=== PATIENT | female | born 2000 | race Caucasian/White ===

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

== ENCOUNTER → 2021-10-02 22:34 | Observation (INO) | END | disposition home or self-care (01) | LOC: 1NENULAB | PROVIDERS: ADMIT Advanced Practice Midwife; ATTEND Advanced Practice Midwife ==

== ENCOUNTER → 2021-11-18 18:12 | Observation (INO) ==
[2021-11-18 17:02] LABS: Bilirubin,Urine Negative (Negative); Blood,Urine Negative (Negative); Clarity,Urine Clear (Clear); Color,Urine Light-Yellow (Yellow); Glucose,Urine (UA) Normal (Normal); Ketones,Urine Negative (Negative); Leukocyte Esterase,Urine Negative (Negative); Nitrite,Urine Negative (Negative); Protein,Urine Negative (Neg-Trace); Specific Gravity,Urine 1.009 (1.010-1.025); Urobilinogen,Urine Normal (Normal)
[2021-11-18 17:03] LABS: Basophils % 0.2 %; Eosinophils # 0.1 K/mcL (0.0-0.6); Eosinophils % 0.5 %; Hematocrit 37.2 % (35.3-44.9); Hemoglobin 12.6 g/dL (11.5-15.4); Immature Granulocytes % 0.4 % (0-4); Lymphocytes # 1.7 K/mcL (0.6-4.6); Lymphocytes % 11.7 %; Mean Corpuscular HGB Conc 33.9 g/dL (31.6-35.5); Mean Corpuscular Hemoglobin 30.9 pg (28.0-33.3); Mean Corpuscular Volume 91.2 fL (83.0-100.0); Mean Platelet Volume 10.6 fL (9.4-12.4); Monocytes # 0.7 K/mcL (0.0-1.3); Monocytes % 5.2 %; Neutrophils # 11.8 K/mcL (1.6-8.9); Platelet Count 340 K/mcL (140-400); Red Blood Count 4.08 M/mcL (3.82-4.97); Red Cell Distribution Width 12.9 % (11.5-14.5); White Blood Count 14.3 K/mcL (4.3-11.1)
[2021-11-18 17:16] LABS: Protein/Creatinine Ratio,Urine 0.19 mg/mg (0.00-0.20)
[2021-11-18 17:22] LABS: Alanine Aminotransferase 11 Units/L (7-52); Aspartate Amino Transferase 19 Units/L (13-39); BUN/Creatinine Ratio 18 (6-26); Blood Urea Nitrogen 10 mg/dL (6-20); Lactate Dehydrogenase 149 Units/L (140-271); Uric Acid 5.2 mg/dL (2.3-7.6); eGFR For African Americans > 60 (> 60); eGFR For Non-African Americans > 60 (> 60)
== END | disposition home or self-care (01) ==
LOC: 1NENULAB
PROVIDERS: ADMIT Advanced Practice Midwife; ATTEND Advanced Practice Midwife

== ENCOUNTER 2021-11-27 11:58 | Inpatient (IN) ==
[2021-11-27] MEDS ORDERED: Naloxone 0.4 MG/ML INJ IVP PRN (12:48)
[2021-11-27] MEDS ORDERED: Metoclopramide 10 MG/2 ML VIAL IVP PRN (12:48)
[2021-11-27] MEDS ORDERED: Ondansetron 4 MG/2 ML VIAL IVP PRN (12:48)
[2021-11-27] MEDS ORDERED: Azithromycin 500 MG in 0.9 % Sodium Chloride 250 ML IVPB PRN (12:48)
[2021-11-27] MEDS ORDERED: *HR* Nalbuphine 10 MG/ML AMPUL IV PRN (12:48)
[2021-11-27] MEDS ORDERED: Famotidine 20 MG/2 ML VIAL IVP PRN (12:48)
[2021-11-27] MEDS ORDERED: *HR* FentaNYL (PF) 100 MCG/2 ML VIAL EP ONE (14:03)
[2021-11-27] MEDS ORDERED: EPHEDrine 50 MG/ML VIAL IVP PRN (14:03)
[2021-11-27] MEDS ORDERED: Ropivacaine/PF 0.2% 20 ML VIAL EP ONE (14:03)
[2021-11-27 14:11] LABS: Amphetamine Screen,Urine Negative ng/mL (Cutoff=1000); Barbiturate Screen,Urine Negative ng/mL (Cutoff=200); Basophils % 0.1 %; Benzodiazepines Screen,Urine Negative ng/mL (Cutoff=200); Cannabinoid Screen,Urine Negative ng/mL (Cutoff = 50); Cocaine Screen,Urine Negative ng/mL (Cutoff= 300); Eosinophils # 0.2 K/mcL (0.0-0.6); Hematocrit 35.4 % (35.3-44.9); Hemoglobin 11.3 g/dL (11.5-15.4); Immature Granulocytes % 0.6 % (0-4); Lymphocytes # 1.4 K/mcL (0.6-4.6); Lymphocytes % 8.7 %; Mean Corpuscular HGB Conc 31.9 g/dL (31.6-35.5); Mean Corpuscular Volume 93.9 fL (83.0-100.0); Mean Platelet Volume 10.8 fL (9.4-12.4); Monocytes # 0.9 K/mcL (0.0-1.3); Opiate Screen,Urine Negative ng/mL (Cutoff=300); Phencyclidine Screen,Urine Negative ng/mL (Cutoff=25); Platelet Count 313 K/mcL (140-400); Red Blood Count 3.77 M/mcL (3.82-4.97); Segmented Neutrophils % 83.6 %; White Blood Count 15.6 K/mcL (4.3-11.1)
[2021-11-27] MEDS ORDERED: miSOPROStoL 25 MCG TABLET PO SCH (14:15)
[2021-11-27] MEDS ORDERED: Epidural Premix (fent/bupiv) 110 ML EP SCH ×2 (14:15→14:45)
[2021-11-27 14:17] LABS: Glucose 101 mg/dL (70-105)
[2021-11-27 14:36] LABS: Influenza A PCR Negative (Negative); Influenza B PCR Negative (Negative); Resp. Syncytial Virus PCR Negative (Negative)
[2021-11-27 14:37] LABS: Alanine Aminotransferase 9 Units/L (7-52); Aspartate Amino Transferase 15 Units/L (13-39); BUN/Creatinine Ratio 16 (6-26); Blood Urea Nitrogen 9 mg/dL (6-20); Creatinine,Urine 235 mg/dL; Lactate Dehydrogenase 168 Units/L (140-271); Protein/Creatinine Ratio,Urine 0.28 mg/mg (0.00-0.20); SARS-CoV-2 by PCR (In House) Negative (Negative); Uric Acid 4.6 mg/dL (2.3-7.6); eGFR For African Americans > 60 (> 60); eGFR For Non-African Americans > 60 (> 60)
[2021-11-28] MEDS ORDERED: *HR* FentaNYL (PF) 100 MCG/2 ML VIAL ONE (07:24)
[2021-11-28] MEDS ORDERED: EPHEDrine 50 MG/ML VIAL ONE (07:24)
[2021-11-28] MEDS ORDERED: *HR* Morphine Sulfate/PF 10 MG/10 ML AMPUL ONE (07:24)
[2021-11-28] MEDS ORDERED: EPINEPHrine 1 MG/ML VIAL ONE (07:25)
[2021-11-28] MEDS ORDERED: *HR* Oxytocin 10 UNIT/ML VIAL ONE (07:25)
[2021-11-28] MEDS ORDERED: Acetaminophen IV 1,000 MG/100 ML BAG IVPB ONE (07:25)
[2021-11-28] MEDS ORDERED: *HR* Phenylephrine 10 MG/ML VIAL ONE (07:25)
[2021-11-28] MEDS ORDERED: Ondansetron 4 MG/2 ML VIAL ONE (07:25)
[2021-11-28] MEDS ORDERED: Ketorolac 30 MG/ML VIAL ONE (07:25)
[2021-11-28] MEDS ORDERED: *HR* Midazolam HCl 2 MG/2 ML VIAL ONE (07:26)
[2021-11-28] MEDS ORDERED: Oxytocin 20 units/ LR 1000 mL 20 UNIT/1,000 ML BAG IVC ONE (07:29)
[2021-11-28] MEDS ORDERED: Ringers Solution, Lactated 1,000 ML IVC ONE (07:29)
[2021-11-28] MEDS ORDERED: CeFAZolin Syr 3,000MG/30 ML 3,000 MG/30 ML SYRINGE IVPB ONE (07:29)
[2021-11-28] MEDS ORDERED: Ringers Solution, Lactated 1,000 ML IVC SCH ×2 (07:30→13:10)
[2021-11-28] MEDS ORDERED: Oxytocin 20 units/ LR 1000 mL 20 UNIT/1,000 ML BAG IVC SCH ×2 (07:30→13:10)
[2021-11-28] MEDS ORDERED: Ringers Solution, Lactated 1,000 ML ONE ×2 (07:38→09:30)
[2021-11-28] MEDS ORDERED: Lidocaine -MPF 1% 5 ML AMPUL ONE (08:50)
[2021-11-28 12:42] LABS: Basophils % 0.1 %; Eosinophils % 0.1 %; Hematocrit 37.3 % (35.3-44.9); Hemoglobin 12.4 g/dL (11.5-15.4); Immature Granulocytes % 0.6 % (0-4); Lymphocytes # 0.7 K/mcL (0.6-4.6); Lymphocytes % 3.1 %; Mean Corpuscular HGB Conc 33.2 g/dL (31.6-35.5); Mean Corpuscular Hemoglobin 30.5 pg (28.0-33.3); Mean Corpuscular Volume 91.6 fL (83.0-100.0); Mean Platelet Volume 10.7 fL (9.4-12.4); Monocytes # 0.5 K/mcL (0.0-1.3); Monocytes % 2.4 %; Neutrophils # 19.9 K/mcL (1.6-8.9); Platelet Count 378 K/mcL (140-400); Red Blood Count 4.07 M/mcL (3.82-4.97); Red Cell Distribution Width 13.2 % (11.5-14.5); Segmented Neutrophils % 93.7 %; White Blood Count 21.3 K/mcL (4.3-11.1)
[2021-11-28 12:54] LABS: Protein/Creatinine Ratio,Urine 0.45 mg/mg (0.00-0.20)
[2021-11-28 13:02] LABS: Alanine Aminotransferase 10 Units/L (7-52); Aspartate Amino Transferase 22 Units/L (13-39); BUN/Creatinine Ratio 16 (6-26); Blood Urea Nitrogen 11 mg/dL (6-20); Lactate Dehydrogenase 235 Units/L (140-271); Uric Acid 5.3 mg/dL (2.3-7.6); eGFR For African Americans > 60 (> 60); eGFR For Non-African Americans > 60 (> 60)
[2021-11-28] MEDS ORDERED: Naloxone 0.4 MG/ML INJ IVP PRN (13:10)
[2021-11-28] MEDS ORDERED: Metoclopramide 10 MG/2 ML VIAL IVP PRN (13:10)
[2021-11-28] MEDS ORDERED: Ondansetron 4 MG/2 ML VIAL IVP PRN (13:10)
[2021-11-28] MEDS ORDERED: Rho Immune Globulin 1,500 UNIT SYRINGE IM ONE (13:10)
[2021-11-28] MEDS ORDERED: Simethicone 80 MG TAB.CHEW PO PRN (13:10)
[2021-11-28] MEDS: *HR* Metformin 500 MG TABLET PO SCH (16:47)
[2021-11-28] MEDS: Acetaminophen 325 MG TABLET PO SCH ×2 (16:48→22:48)
[2021-11-28] MEDS: Ibuprofen 600 MG TABLET PO SCH ×2 (16:48→22:48)
[2021-11-28] MEDS: hydrOXYzine pamoate 25 MG CAPSULE PO PRN (16:48)
[2021-11-28] MEDS ORDERED: *HR* Nalbuphine 10 MG/ML AMPUL IV PRN (17:06)
[2021-11-28] MEDS ORDERED: Fluconazole 150 MG TABLET PO ONE (21:00)
[2021-11-28] MEDS: metroNIDAZOLE 500 MG TABLET PO SCH (21:19)
[2021-11-28] MEDS: cephALEXin 500 MG CAPSULE PO SCH (21:19)
[2021-11-28] MEDS: LOVEN SQ SCH (21:20)
[2021-11-29] MEDS: Ibuprofen 600 MG TABLET PO SCH ×2 (04:29→16:12)
[2021-11-29] MEDS: Acetaminophen 325 MG TABLET PO SCH ×2 (04:30→20:42)
[2021-11-29] MEDS: hydrOXYzine pamoate 25 MG CAPSULE PO PRN ×3 (04:30→20:42)
[2021-11-29 05:46] LABS: Basophils % 0.3 %; Eosinophils # 0.1 K/mcL (0.0-0.6); Eosinophils % 0.9 %; Hemoglobin 11.2 g/dL (11.5-15.4); Immature Granulocytes % 0.6 % (0-4); Lymphocytes % 15.2 %; Mean Corpuscular HGB Conc 32.9 g/dL (31.6-35.5); Mean Corpuscular Hemoglobin 30.5 pg (28.0-33.3); Mean Corpuscular Volume 92.6 fL (83.0-100.0); Mean Platelet Volume 10.3 fL (9.4-12.4); Monocytes # 0.8 K/mcL (0.0-1.3); Neutrophils # 10.4 K/mcL (1.6-8.9); Platelet Count 319 K/mcL (140-400); Red Blood Count 3.67 M/mcL (3.82-4.97); Red Cell Distribution Width 13.1 % (11.5-14.5); White Blood Count 13.5 K/mcL (4.3-11.1)
[2021-11-29] MEDS: *HR* Metformin 500 MG TABLET PO SCH ×2 (07:29→16:12)
[2021-11-29] MEDS: cephALEXin 500 MG CAPSULE PO SCH ×3 (08:57→20:43)
[2021-11-29] MEDS: metroNIDAZOLE 500 MG TABLET PO SCH ×3 (08:58→20:43)
[2021-11-29] MEDS: Loratadine 10 MG TABLET PO SCH (08:58)
[2021-11-29] MEDS: Prenatal Vit/FA 1 EACH TABLET PO SCH (08:59)
[2021-11-29] MEDS: LOVEN SQ SCH ×2 (09:00→20:39)
[2021-11-29] MEDS: *HR* OxyCODONE Immed Rel 5 MG TABLET PO PRN ×3 (09:20→20:43)
[2021-11-30] MEDS: *HR* OxyCODONE Immed Rel 5 MG TABLET PO PRN ×3 (01:44→15:52)
[2021-11-30] MEDS: Ibuprofen 600 MG TABLET PO SCH ×3 (01:46→23:07)
[2021-11-30] MEDS: Prenatal Vit/FA 1 EACH TABLET PO SCH (08:19)
[2021-11-30] MEDS: metroNIDAZOLE 500 MG TABLET PO SCH ×2 (08:19→15:52)
[2021-11-30] MEDS: cephALEXin 500 MG CAPSULE PO SCH ×2 (08:19→15:52)
[2021-11-30] MEDS: Acetaminophen 325 MG TABLET PO SCH ×2 (08:20→23:07)
[2021-11-30] MEDS: Loratadine 10 MG TABLET PO SCH (08:20)
[2021-11-30] MEDS: LOVEN SQ SCH ×2 (08:20→23:07)
[2021-11-30] MEDS: *HR* Metformin 500 MG TABLET PO SCH (08:20)
[2021-11-30 08:35] VITALS: O2SAT 98
[2021-11-30] MEDS: hydrOXYzine pamoate 25 MG CAPSULE PO PRN (23:07)
[2021-12-01] MEDS: Acetaminophen 325 MG TABLET PO SCH (06:50)
[2021-12-01] MEDS: Ibuprofen 600 MG TABLET PO SCH (06:50)
[2021-12-01 07:17] VITALS: BP 124/86; PULSE 108; TEMP 97.6
[2021-12-01] MEDS: Prenatal Vit/FA 1 EACH TABLET PO SCH (09:57)
[2021-12-01] MEDS: Loratadine 10 MG TABLET PO SCH (09:57)
[2021-12-01] MEDS: LOVEN SQ SCH (09:59)
[2021-12-01] MEDS ORDERED: lamoTRIgine 25 MG TABLET PO SCH (11:30)
[2021-12-01] MEDS: *HR* Metformin 500 MG TABLET PO SCH (13:57)
== END 2021-12-01 16:08 | disposition home or self-care (01) | DRG 540 ==
LOC: 1NENULAB 11:58 → 1NENUOBS 19:27
PROVIDERS: ADMIT Registered Nurse; ATTEND Registered Nurse

== ENCOUNTER 2021-12-09 10:10 | Inpatient (IN) ==
[2021-12-09 11:24] LABS: Amphetamine Screen,Urine Negative ng/mL (Cutoff=1000); Barbiturate Screen,Urine Negative ng/mL (Cutoff=200); Benzodiazepines Screen,Urine Negative ng/mL (Cutoff=200); Cannabinoid Screen,Urine Negative ng/mL (Cutoff = 50); Cocaine Screen,Urine Negative ng/mL (Cutoff= 300); Opiate Screen,Urine Negative ng/mL (Cutoff=300); Phencyclidine Screen,Urine Negative ng/mL (Cutoff=25)
[2021-12-09 11:25] LABS: Basophils % 0.4 %; Eosinophils # 0.3 K/mcL (0.0-0.6); Eosinophils % 3.8 %; Hematocrit 32.5 % (35.3-44.9); Hemoglobin 10.4 g/dL (11.5-15.4); Immature Granulocytes % 0.2 % (0-4); Lymphocytes # 0.8 K/mcL (0.6-4.6); Lymphocytes % 9.4 %; Mean Corpuscular Hemoglobin 30.3 pg (28.0-33.3); Mean Corpuscular Volume 94.8 fL (83.0-100.0); Mean Platelet Volume 9.4 fL (9.4-12.4); Monocytes # 0.8 K/mcL (0.0-1.3); Neutrophils # 6.6 K/mcL (1.6-8.9); Platelet Count 462 K/mcL (140-400); Red Blood Count 3.43 M/mcL (3.82-4.97); Red Cell Distribution Width 13.4 % (11.5-14.5); Segmented Neutrophils % 77.2 %; White Blood Count 8.5 K/mcL (4.3-11.1)
[2021-12-09 11:37] LABS: Bacteria,Urine Few per hpf (None-Few); Bilirubin,Urine Negative (Negative); Blood,Urine Large (Negative); Clarity,Urine Clear (Clear); Color,Urine Colorless (Yellow); Glucose,Urine (UA) Normal (Normal); Ketones,Urine Negative (Negative); Leukocyte Esterase,Urine Trace (Negative); Nitrite,Urine Negative (Negative); PH,Urine 6.5 pH Units (5.0-8.0); Protein,Urine Negative (Neg-Trace); RBC,Urine 0-3 per hpf (0-3); Specific Gravity,Urine 1.008 (1.010-1.025); Squamous Epithelial Cell,Urine Few per hpf (None-Few); Transitional Epi Cells,Urine Few per hpf (None-Few); Urobilinogen,Urine Normal (Normal)
[2021-12-09] MEDS ORDERED: Isovue-370 500 ML BOTTLE IVP ONE (11:42)
[2021-12-09 11:46] LABS: Acetaminophen < 10 mcg/mL (10-20); Alanine Aminotransferase 20 Units/L (7-52); Albumin 3.5 g/dL (3.5-5.7); Albumin/Globulin Ratio 1.2 (1.1-2.2); Alkaline Phosphatase 103 Units/L (34-104); Aspartate Amino Transferase 26 Units/L (13-39); BUN/Creatinine Ratio 14 (6-26); Bilirubin,Direct 0.1 mg/dL (0.0-0.2); Bilirubin,Indirect 0.2 mg/dL (0.0-1.0); Bilirubin,Total 0.3 mg/dL (0.3-1.0); Blood Urea Nitrogen 11 mg/dL (6-20); Calcium 8.5 mg/dL (8.6-10.3); Carbon Dioxide 25 mEq/L (23-29); Chloride 107 mEq/L (98-107); Chol/HDL Ratio 3.6 (0-4.9); Cholesterol 217 mg/dL (< 200); Ethanol < 10 mg/dL (Less than 10); Globulin 2.9 g/dL (2.4-3.5); Glucose 79 mg/dL (70-105); HDL Cholesterol 60 mg/dL (40-59); LDL Cholesterol,Calculated 125 mg/dL (< 100); Osmolality,Calculated 288 (280-300); Potassium 4.6 mEq/L (3.5-5.1); Salicylate < 2.5 mg/dL (15.0-30.0); Sodium 140 mEq/L (136-145); Total Protein 6.4 g/dL (6.4-8.9); Triglycerides 160 mg/dL (< 150); eGFR For African Americans > 60 (> 60); eGFR For Non-African Americans > 60 (> 60)
[2021-12-09 11:48] LABS: Estimated Average Glucose 114 mg/dl; Hemoglobin A1C 5.6 %
[2021-12-09] MEDS ORDERED: Ipratropium/Albuterol Neb 3 ML IH ONE (12:04)
[2021-12-09 12:06] LABS: Thyroid Stimulating Hormone 2.952 mcIU/mL (0.340-5.600)
[2021-12-09 12:30] LABS: Influenza A PCR Negative (Negative); Influenza B PCR Negative (Negative); Resp. Syncytial Virus PCR Negative (Negative); SARS-CoV-2 by PCR (In House) Negative (Negative)
[2021-12-09] MEDS ORDERED: cefTRIAXone 1,000 MG in 0.9 % Sodium Chloride Mini Bag 100 ML IVPB ONE (14:35)
[2021-12-09 15:42] LABS: Candida DNA Not Detected (Not Detect); Gardnerella DNA Not Detected (Not Detect); Trichomonas DNA Not Detected (Not Detect)
[2021-12-09] MEDS ORDERED: Ibuprofen 600 MG TABLET PO PRN (22:45)
[2021-12-09] MEDS ORDERED: *HR* HYDROcodone/Acet 5/325 mg TABLET PO PRN (22:45)
[2021-12-09] MEDS ORDERED: hydrOXYzine pamoate 25 MG CAPSULE PO PRN (22:45)
[2021-12-09] MEDS ORDERED: D5% in Water 1,000 ML IVC PRN (22:45)
[2021-12-09] MEDS ORDERED: *HR* Dextrose 50 % in Water (Syg) 50 ML SYRINGE IVP PRN (22:45)
[2021-12-09] MEDS ORDERED: Dextrose Gel 15 GM/37.5 ML TUBE PO PRN ×2 (22:45)
[2021-12-09] MEDS ORDERED: lamoTRIgine 25 MG TABLET PO SCH (22:45)
[2021-12-10] MEDS: Clindamycin 900 MG/50 ML 900 MG/50 ML IV.SOLN IVPB SCH ×3 (00:02→17:54)
[2021-12-10] MEDS: Acetaminophen 325 MG TABLET PO SCH ×4 (00:02→17:54)
[2021-12-10] MEDS ORDERED: *HR* LORazepam 2 MG/ML VIAL IVP PRN (01:14)
[2021-12-10] MEDS: cefTRIAXone 1,000 MG in 0.9 % Sodium Chloride 10 ML IVPB SCH ×2 (06:27→17:54)
[2021-12-10] MEDS: Insulin LISPRO 300 UNITS/3 ML VIAL SUBQ SCH ×3 (07:33→17:30)
[2021-12-10] MEDS: *HR* Metformin 500 MG TABLET PO SCH ×2 (08:38→17:54)
[2021-12-10] MEDS: Loratadine 10 MG TABLET PO SCH (08:38)
[2021-12-10] MEDS: *HR* Enoxaparin 60 MG/0.6 ML SYRINGE SQ SCH (17:54)
[2021-12-10] MEDS: cephALEXin 500 MG CAPSULE PO SCH (20:03)
[2021-12-10] MEDS ORDERED: lamoTRIgine 25 MG TABLET PO SCH (21:00)
[2021-12-11] MEDS: Acetaminophen 325 MG TABLET PO SCH ×3 (00:12→11:38)
[2021-12-11 02:16] LABS: Hematocrit 36.3 % (35.3-44.9); Hemoglobin 11.7 g/dL (11.5-15.4); Mean Corpuscular HGB Conc 32.2 g/dL (31.6-35.5); Mean Corpuscular Hemoglobin 30.8 pg (28.0-33.3); Mean Corpuscular Volume 95.5 fL (83.0-100.0); Mean Platelet Volume 9.4 fL (9.4-12.4); Platelet Count 523 K/mcL (140-400); Red Cell Distribution Width 13.1 % (11.5-14.5); White Blood Count 7.8 K/mcL (4.3-11.1)
[2021-12-11 03:00] LABS: Eosinophils # 0.3 K/mcL (0.0-0.6); Lymphocytes # 2.3 K/mcL (0.6-4.6); Monocytes # 0.2 K/mcL (0.0-1.3)
[2021-12-11 03:01] LABS: Platelet Estimate Increased (Normal)
[2021-12-11] MEDS: *HR* Enoxaparin 60 MG/0.6 ML SYRINGE SQ SCH (06:54)
[2021-12-11 07:36] VITALS: O2SAT 98
[2021-12-11] MEDS: cephALEXin 500 MG CAPSULE PO SCH (08:43)
[2021-12-11] MEDS: *HR* Metformin 500 MG TABLET PO SCH (08:43)
[2021-12-11] MEDS: Loratadine 10 MG TABLET PO SCH (08:43)
[2021-12-11] MEDS: Insulin LISPRO 300 UNITS/3 ML VIAL SUBQ SCH ×2 (08:44→11:38)
[2021-12-11 12:38] VITALS: BP 132/81; PULSE 86; TEMP 98
== END 2021-12-11 16:23 | disposition home health service (06) | DRG 813 ==
LOC: EMEROOARM 10:10 → 1NENUOBS 10:10 → 3ANU 20:02
PROVIDERS: ADMIT Obstetrics & Gynecology; ATTEND Obstetrics & Gynecology

== ENCOUNTER 2022-02-22 22:28 | Inpatient (IN) ==
[2022-02-22 23:10] LABS: Bilirubin,Urine Negative (Negative); Blood,Urine Negative (Negative); Clarity,Urine Clear (Clear); Color,Urine Colorless (Yellow); Glucose,Urine (UA) Normal (Normal); Ketones,Urine Negative (Negative); Leukocyte Esterase,Urine Negative (Negative); Nitrite,Urine Negative (Negative); Protein,Urine Negative (Neg-Trace); Specific Gravity,Urine 1.007 (1.010-1.025); Urobilinogen,Urine Normal (Normal)
[2022-02-22 23:18] LABS: Amphetamine Screen,Urine Negative ng/mL (Cutoff=1000); Barbiturate Screen,Urine Negative ng/mL (Cutoff=200); Benzodiazepines Screen,Urine Negative ng/mL (Cutoff=200); Cannabinoid Screen,Urine Negative ng/mL (Cutoff = 50); Cocaine Screen,Urine Negative ng/mL (Cutoff= 300); Opiate Screen,Urine Negative ng/mL (Cutoff=300); Phencyclidine Screen,Urine Negative ng/mL (Cutoff=25)
[2022-02-22 23:19] LABS: Basophils % 0.3 %; Eosinophils # 0.2 K/mcL (0.0-0.6); Eosinophils % 1.4 %; Hematocrit 39.6 % (35.3-44.9); Hemoglobin 12.8 g/dL (11.5-15.4); Immature Granulocytes % 0.2 % (0-4); Lymphocytes # 2.2 K/mcL (0.6-4.6); Lymphocytes % 18.2 %; Mean Corpuscular HGB Conc 32.3 g/dL (31.6-35.5); Mean Corpuscular Hemoglobin 28.4 pg (28.0-33.3); Mean Platelet Volume 9.7 fL (9.4-12.4); Monocytes # 0.8 K/mcL (0.0-1.3); Monocytes % 6.7 %; Neutrophils # 8.8 K/mcL (1.6-8.9); Platelet Count 473 K/mcL (140-400); Red Cell Distribution Width 13.5 % (11.5-14.5); Segmented Neutrophils % 73.2 %; White Blood Count 12.1 K/mcL (4.3-11.1)
[2022-02-22 23:29] LABS: Acetaminophen < 10 mcg/mL (10-20); BUN/Creatinine Ratio 21 (6-26); Blood Urea Nitrogen 18 mg/dL (6-20); Carbon Dioxide 25 mEq/L (23-29); Chloride 103 mEq/L (98-107); Cholesterol 178 mg/dL (< 200); Ethanol < 10 mg/dL (Less than 10); Glucose 99 mg/dL (70-105); HDL Cholesterol 59 mg/dL (40-59); LDL Cholesterol,Calculated 78 mg/dL (< 100); Osmolality,Calculated 286 (280-300); Potassium 3.6 mEq/L (3.5-5.1); Salicylate < 2.5 mg/dL (15.0-30.0); Sodium 137 mEq/L (136-145); Triglycerides 205 mg/dL (< 150); eGFR For African Americans > 60 (> 60); eGFR For Non-African Americans > 60 (> 60)
[2022-02-22 23:32] LABS: Estimated Average Glucose 120 mg/dl; Hemoglobin A1C 5.8 %
[2022-02-22 23:52] LABS: Alanine Aminotransferase 19 Units/L (7-52); Albumin 3.8 g/dL (3.5-5.7); Albumin/Globulin Ratio 1.4 (1.1-2.2); Alkaline Phosphatase 82 Units/L (34-104); Aspartate Amino Transferase 17 Units/L (13-39); Bilirubin,Indirect 0.2 mg/dL (0.0-1.0); Bilirubin,Total 0.2 mg/dL (0.3-1.0); Globulin 2.8 g/dL (2.4-3.5); Total Protein 6.6 g/dL (6.4-8.9)
[2022-02-23 02:07] LABS: Influenza A PCR Negative (Negative); Influenza B PCR Negative (Negative); Resp. Syncytial Virus PCR Negative (Negative)
[2022-02-23 02:12] LABS: SARS-CoV-2 by PCR (In House) Negative (Negative)
[2022-02-23] MEDS ORDERED: traZODone 50 MG TABLET PO PRN (02:23)
[2022-02-23] MEDS ORDERED: *HR* LORazepam 2 MG/ML VIAL IM PRN (02:23)
[2022-02-23] MEDS ORDERED: haloperidoL 5 MG TABLET PO PRN (02:23)
[2022-02-23] MEDS ORDERED: Acetaminophen 325 MG TABLET PO PRN (02:23)
[2022-02-23] MEDS ORDERED: Haloperidol Lactate 5 MG/ML VIAL IM PRN (02:23)
[2022-02-23] MEDS ORDERED: *HR* LORazepam 1 MG TABLET PO PRN (02:23)
[2022-02-23] MEDS ORDERED: MOM Conc 10 ML UD.LIQ PO PRN (08:04)
[2022-02-23] MEDS ORDERED: Mag Hydrox/Al Hydrox/Simeth 30 ML UDC PO PRN (08:04)
[2022-02-23] MEDS: lamoTRIgine 25 MG TABLET PO SCH (13:08)
[2022-02-23] MEDS: ETHINYL ESTRADIOL PO SCH (14:10)
[2022-02-23] MEDS: DROSPIRENONE PO SCH (14:10)
[2022-02-23] MEDS: *HR* Metformin 500 MG TABLET PO SCH (17:06)
[2022-02-23] MEDS: hydrOXYzine pamoate 25 MG CAPSULE PO PRN (21:43)
[2022-02-24] MEDS: *HR* Metformin 500 MG TABLET PO SCH (08:43)
[2022-02-24] MEDS: lamoTRIgine 25 MG TABLET PO SCH (08:43)
[2022-02-24] MEDS: DROSPIRENONE PO SCH (08:44)
[2022-02-24] MEDS: ETHINYL ESTRADIOL PO SCH (08:44)
[2022-02-24] MEDS: hydrOXYzine pamoate 25 MG CAPSULE PO PRN (09:46)
[2022-02-24 10:22] VITALS: BP 100/78; PULSE 82; TEMP 97.3; O2SAT 97
== END 2022-02-24 15:45 | disposition other institution (70) | DRG 753 ==
LOC: EMEROOARM 22:28 → 1ANU 02-23 02:24
PROVIDERS: ADMIT Psychiatry & Neurology Psychiatry; ATTEND Psychiatry & Neurology Psychiatry